=== PATIENT | female | born 1950 | race Caucasian/White ===

== ENCOUNTER → 2021-10-15 | Outpatient (CLI) | payer OTHER | LOC: LAB SHORT 15:30 | DX: Z48.02 Encounter for removal of sutures (principal); L08.9 Local infection of the skin and subcutaneous tissue, unspecified; C44.519 Basal cell carcinoma of skin of other part of trunk; D22.5 Melanocytic nevi of trunk; L57.0 Actinic keratosis; L57.8 Other skin changes due to chronic exposure to nonionizing radiation | CPT/HCPCS: 87070; 87077; 87147; 87186; 87205 ==

== ENCOUNTER → 2021-11-14 | Outpatient (CLI) | payer OTHER | END | disposition home or self-care (01) | LOC: LAB 11:30 → LAB SHORT 11:30 | DX: C44.519 Basal cell carcinoma of skin of other part of trunk (principal); L08.9 Local infection of the skin and subcutaneous tissue, unspecified | CPT/HCPCS: 87070; 87077; 87147; 87186; 87205 ==